=== PATIENT | female | born 1995 | race Caucasian/White ===

== ENCOUNTER 2018-02-25 17:41 | Emergency (ER) | payer SELFPAY ==
[~2018-02-25] VITALS: Ht 162.6 cm; Wt 90.0 kg
[2018-02-25 21:14] VITALS: BP 122/69
== END 2018-02-26 00:37 | disposition left against medical advice (07) ==
LOC: ER 18:17
DX: R07.81 Pleurodynia (principal); Z53.21 Procedure and treatment not carried out due to patient leaving prior to being seen by health care provider